=== PATIENT | female | born 1955 | race Caucasian/White ===

== ENCOUNTER 2022-07-15 12:04 | Emergency (ER) | payer MEDICAID ==
[~2022-07-15] VITALS: Ht 170.2 cm; Wt 83.9 kg
--- NOTE | 2022-07-15 12:34 | NUR ---
PT IN BED 12, BREATHING IS EVEN AND UNLABORED 99% ON ROOM AIR. C/O MECHANICAL FALL ON UNEVEN GROUND FELL ON FACE CAUSING NOSE BLEED.
--- NOTE | 2022-07-15 12:38 | NUR ---
EMT AT BEDSIDE TO CLEAN WOUNDS.
[2022-07-15] MEDS ORDERED: TDAP [DIPH/PERTUSSIS/TET] 0.5 ML VIAL IM ONE ×2 (13:00→13:17)
--- NOTE | 2022-07-15 13:27 | NUR ---
CT IMAGES TAKEN
[2022-07-15] MEDS ORDERED: ACETAMINOPHEN 325 MG TABLET PO ONE (14:00)
[2022-07-15] MEDS ORDERED: ACETAMINOPHEN 325 MG TABLET ONE (14:15)
[2022-07-15] MEDS ORDERED: IBUP-1955 PO (14:45)
--- NOTE | 2022-07-15 16:26 | NUR ---
Patient discharged to home in stable condition. Written and verbal after care instructions given. Patient verbalizes understanding of instruction.
[2022-07-15 16:27] VITALS: BP 120/65
== END 2022-07-15 16:27 | disposition home or self-care (01) ==
LOC: ER 12:06
DX: S02.2XXA Fracture of nasal bones, initial encounter for closed fracture (principal); S00.81XA Abrasion of other part of head, initial encounter; R04.0 Epistaxis; I10 Essential (primary) hypertension; M19.90 Unspecified osteoarthritis, unspecified site; Z90.49 Acquired absence of other specified parts of digestive tract; Z88.8 Allergy status to other drugs, medicaments and biological substances; W01.10XA Fall on same level from slipping, tripping and stumbling with subsequent striking against unspecified object, initial encounter; Y93.01 Activity, walking, marching and hiking; Y92.89 Other specified places as the place of occurrence of the external cause; Y99.8 Other external cause status
CPT/HCPCS: 36415; 70450-TC; 70486-TC; 90715